=== PATIENT | male | born 1975 | race Caucasian/White ===

== ENCOUNTER 2016-12-13 17:11 | Emergency (ER) | payer MEDICAID ==
[2016-12-13 17:16] VITALS: BP 132/95
[2016-12-13] MEDS ORDERED: Tetracaine 0.5% 2 ML Bottle ONE (17:28)
[2016-12-13] MEDS ORDERED: Tetracaine 0.5% 2 ML Bottle EYERT ONE (17:38)
[2016-12-13] MEDS ORDERED: Balanced Salt Solution Ophth Irrig 30 ML Bottle EYERT ONE (17:43)
[2016-12-13] MEDS ORDERED: Acetaminophen/HYDROcodone 325-7.5 MG Tab PO ONE (17:50)
--- NOTE | 2016-12-13 17:58 | EDM.PDOC ---
ED HPI EYE COMPLAINT - General Chief Complaint: ENT Problem Stated Complaint: right eye pain and FB Time Seen by Provider: 12/13/16 17:30 Source: Reports: Patient History Limitations: Reports: No limitations - History of Present Illness INITIAL COMMENTS - FREE TEXT/NARRATIVE: Was grinding metal yesterday and got a piece of it in the right eye. Now it is red and painful. Symptom Onset Date: 12/12/16 Symptom Onset Time: 17:00 Location: right eye Quality: Reports: Burning Severity: moderate Improves with: Reports: None Worsens with: Reports: None Context: Reports: other (as above) Associated Symptoms (Eye): Reports: pain, burning, FB sensation, sensitivity to light CORE BAKER (EYE): eyewash/irrigation - Related Data Allergies/ADRs: Allergies No Known Allergies Allergy (Verified 12/13/16 17:12) Home Meds: Ambulatory Orders Medication Instructions Recorded Confirmed Hydrocodone/Acetaminophen [Brielle 1 each PO QID PRN #8 tablet 12/13/16 7.5-325 Tablet] Past Medical History Cardiovascular History: Reports: None Respiratory History: Reports: COPD Gastrointestinal History: Reports: GERD Genitourinary History: Reports: Renal calculus Psychiatric History: Reports: None - Infectious Disease History Infectious Disease History: Reports: Chicken pox - Past Surgical History HEENT Surgical History: Reports: Oral surgery Male Surgical History: Reports: Lithotripsy (ESWL), Renal Calculus, Other ( see below) Other Male Surgeries/Procedures: renal stent Social & Family History - Tobacco Use Smoking Status *Q: Current Every Day Smoker Years of Tobacco use: 25 Packs/Tins Daily: 1 Used Tobacco, but Quit: No Second Hand Smoke Exposure: No - Alcohol Use Days Per Week of Alcohol Use: 0 Number of Drinks Per Day: 1 Total Drinks Per Week: 0 - Recreational Drug Use Recreational Drug Use: Yes Drug Use in Last 12 Months: Yes Recreational Drug Type: Reports: Marijuana/Hashish Recreational Drug Use Frequency: Daily Recreational Drug Last Use: marijuana - Living Situation & Occupation Living situation: Reports: (07/06/10-second , one daughter and 3 sons from first marriage), (From his first in 2003 with the patient having custody of the 4 children from this marriage) Occupation: employed ([employer], previously involved in construction, welding, etc. ) ED ROS GENERAL - Review of Systems Review Of Systems: ROS reveals no pertinent complaints other than HPI. ED EXAM GENERAL W FULL EYE - Physical Exam Exam: See Below Exam Limited By: No limitations General Appearance: alert, WD/WN, no apparent distress Eye Exam: right eye: conjunctival injection, foreign body, left eye: normal inspection, bilateral eye: EOMI, PERRL Eyelids: bilateral: normal appearance Conjunctiva & Sclera: right: injected Cornea Exam: right: foreign body Extraocular Movements: bilateral: intact Pupils: normal accommodation Pupillary Size: bilateral: 4 mm Pupillary Reaction: bilateral: brisk Anterior Chamber: bilateral: normal appearance Nose: normal inspection Throat/Mouth: Normal inspection, No airway compromise Head: atraumatic, normocephalic Neck: normal inspection, supple, non-tender, full range of motion Respiratory/Chest: no respiratory distress, lungs clear, no accessory muscle use Cardiovascular: regular rate, rhythm Neurological: alert, oriented, CN II-XII intact, normal cognition, normal gait, no motor/sensory deficits Psychiatric: normal affect, normal mood Skin Exam: Warm, Dry, Intact, Normal color, No rash ED EYE w/ Add Procedure - Eye Procedure Alcaine Drops Administered: Yes Eye FB Removal: other (ophthalmic esther - including rust ring) Eye Irrigated w/ Saline (ccs): 10 Course - Vital Signs Last Recorded V/S: Last Vital Signs Temp 37.2 C 12/13/16 17:12 Pulse 90 12/13/16 17:12 Resp 18 12/13/16 17:12 BP 132/95 H 12/13/16 17:12 Pulse Ox 98 12/13/16 17:12 - Orders/Labs/Meds Meds: Medications Discontinued Medications Generic Name Dose Route Start Last Admin Trade Name Marii PRN Reason Stop Dose Admin Acetaminophen/Hydrocodone Bitart 1 tab 12/13/16 17:50 Brielle 325-7.5 Mg PO 12/13/16 17:51 ONETIME ONE Balanced Salt Solution 30 ml 12/13/16 17:43 12/13/16 17:53 Eye Stream Eye Rinse EYERT 12/13/16 17:44 30 ml ONETIME ONE Administration Tetracaine Confirm 12/13/16 17:28 12/13/16 17:38 Pontocaine 0.5% Ophth Drops Administered 12/13/16 17:29 Not Given Dose 2 ml .ROUTE .STK-MED ONE Tetracaine 1 ml 12/13/16 17:38 12/13/16 17:28 Pontocaine 0.5% Ophth Drops EYERT 12/13/16 17:39 1 ml ASDIRECTED ONE Administration Departure - Departure Time of Disposition: 17:58 Disposition: Home, Self-Care 01 Condition: good Clinical Impression: Corneal foreign body Qualifiers: Encounter type: initial encounter Laterality: right Qualified Code(s): T15.01XA - Foreign body in cornea, right eye, initial encounter Prescriptions: Hydrocodone/Acetaminophen [Brielle 7.5-325 Tablet] 1 each PO QID PRN #8 tablet PRN Reason: Pain Instructions: Eye Foreign Body, [id number] Referrals: Nery Borden NP [Primary Care Provider] - Forms: ED Department Discharge Additional Instructions: You had a small piece of metal in the eye over the cornea. There was a small ring of rust around it. It was all removed with a tiny esther. Use the eye drops four times a day for 5 days until the cornea heals. Use the pain medication as needed for the next couple days. - Problem List Review Problem List Initiated/Reviewed/Updated: No - Assessment/Plan Assessment:: Corneal FB with rust ring - removed with esther Plan: Antibiotic drops bid for 5 days Brielle 7.5 #8 for pain See eye doctor in F/U
== END 2016-12-13 18:10 | disposition home or self-care (01) ==
LOC: LL.ED 17:11
DX: T15.01XA Foreign body in cornea, right eye, initial encounter (principal); X58.XXXA Exposure to other specified factors, initial encounter; F17.200 Nicotine dependence, unspecified, uncomplicated
CPT/HCPCS: 65220; 99282; 99283; A9270

== ENCOUNTER 2019-03-24 09:59 | Emergency (ER) | payer MEDICAID ==
[2019-03-24 10:14] VITALS: BP 127/84
[2019-03-24] MEDS ORDERED: Ketorolac 10 MG Tab PO ONE (10:52)
[2019-03-24] MEDS ORDERED: traMADol 50 MG Tab PO ONE (12:00)
--- NOTE | 2019-03-24 12:07 | EDM.PDOC ---
ED HPI GENERAL MEDICAL PROBLEM - General Chief Complaint: General Stated Complaint: L Knee pain, R wrist pain Time Seen by Provider: 03/24/19 10:27 Source of Information: Reports: Patient History Limitations: Reports: No Limitations - History of Present Illness INITIAL COMMENTS - FREE TEXT/NARRATIVE: Patient comes to ER to have left knee/ankle and right wrist looked at. He was on a ladder yesterday when he fell off and landed on the ground. Was around 5-6 feet up when this happened. No loc. Able to ambulate but more sore today. Can partially bear weight on left knee. Denies other injuries. Has not taken anything for pain. States knee is 10/10 pain and wrist 7/10 Treatments QUANTITATIVE RESEARCHER: Reports: Cold Therapy - Related Data Allergies Allergy/AdvReac Type Severity Reaction Status Date / Time No Known Allergies Allergy Verified 03/24/19 10:06 Home Meds: Home Meds traMADol [Ultram] 50 mg PO Q6H PRN #12 tab 03/24/19 [Rx] Past Medical History Cardiovascular History: Reports: None Respiratory History: Reports: COPD Gastrointestinal History: Reports: GERD Genitourinary History: Reports: Renal Calculus Psychiatric History: Reports: None - Infectious Disease History Infectious Disease History: Reports: Chicken Pox - Past Surgical History HEENT Surgical History: Reports: Oral Surgery Male Surgical History: Reports: Lithotripsy (ESWL), Renal Calculus Social & Family History - Tobacco Use Smoking Status *Q: Current Every Day Smoker Years of Tobacco use: 29 Packs/Tins Daily: 1.5 Smoking Cessation Information Provided To Patient: Patient Refused - Alcohol Use Alcohol Use History: Yes Alcohol Use Frequency: Socially - Recreational Drug Use Recreational Drug Type: Reports: Marijuana/Hashish Recreational Drug Use Frequency: Socially - Living Situation & Occupation Living situation: Reports: , Occupation: Employed ED ROS GENERAL - Review of Systems Review Of Systems: See Below Constitutional: Reports: No Symptoms HEENT: Reports: No Symptoms Respiratory: Reports: No Symptoms. Denies: Pleuritic Chest Pain Cardiovascular: Reports: No Symptoms. Denies: Chest Pain GI/Abdominal: Reports: No Symptoms. Denies: Abdominal Pain : Reports: No Symptoms Musculoskeletal: Reports: Joint Pain (see HPI), Muscle Stiffness. Denies: Neck Pain, Shoulder Pain, Back Pain, Joint Swelling Skin: Reports: Other (abrasion left ankle) Neurological: Reports: No Symptoms Psychiatric: Reports: No Symptoms ED EXAM, GENERAL - Physical Exam Exam: See Below Exam Limited By: No Limitations General Appearance: Alert, WD/WN, No Apparent Distress Eye Exam: Bilateral Eye: EOMI, PERRL Ears: Normal External Exam, Hearing Grossly Normal Nose: No: Nasal Deformity, Nasal Swelling, Nasal Drainage Throat/Mouth: Normal Lips, Normal Voice, No Airway Compromise Head: Atraumatic, Normocephalic Neck: Normal Inspection, Supple, Non-Tender, Full Range of Motion. No: Tender Lateral, Tender Midline Respiratory/Chest: No Respiratory Distress, Lungs Clear, Normal Breath Sounds, No Accessory Muscle Use, Chest Non-Tender Cardiovascular: Regular Rate, Rhythm, No Edema, No Murmur Peripheral Pulses: 2+: Radial (R), Dorsalis Pedis (L) GI/Abdominal: Soft, Non-Tender (Male) Exam: Deferred Rectal (Males) Exam: Deferred Back Exam: No: Muscle Spasm, Paraspinal Tenderness, Vertebral Tenderness Extremities: Normal Capillary Refill, Other (able to move right wrist/elbow/ fingers as well as left knee and ankle, some pain limitation when moving the knee. No obvious deformity/swelling of involved joints. Knee has some tenderness to it inferior to patella medially and laterally, otherwise non- tender. Ankle has mild discomfort difusely with palpation but nothing pinpoint. Rest of left leg non-tender. Mild diffuse tenderness with palpation of right wrist, non-focal. Wiggles fingers easily. Elbow and forearm non-tender. Mild abrasion lateral left ankle, otherwise no bruising noted. Skin otherwise normal color. Other joints non-tender) Neurological: Alert, Oriented, Normal Cognition, No Motor/Sensory Deficits Psychiatric: Normal Affect, Normal Mood Skin Exam: Warm, Dry Course - Vital Signs Last Recorded V/S: Last Vital Signs Temp 36.5 C 03/24/19 10:00 Pulse 62 03/24/19 10:00 Resp 16 03/24/19 10:00 BP 127/84 03/24/19 10:00 Pulse Ox 98 03/24/19 10:00 - Orders/Labs/Meds Orders: Active Orders 24 hr Category Date Time Status Ankle Min 3V Lt [CR] Stat Exams 03/24/19 10:07 Taken Knee 3V Lt [CR] Stat Exams 03/24/19 10:08 Taken Tibia Fibula Lt [CR] Stat Exams 03/24/19 10:08 Taken Wrist Comp Min 3V Rt [CR] Stat Exams 03/24/19 10:07 Taken Meds: Medications Discontinued Medications Generic Name Dose Route Start Last Admin Trade Name Freq PRN Reason Stop Dose Admin Ketorolac Tromethamine 10 mg 03/24/19 10:52 03/24/19 11:08 Toradol PO 03/24/19 10:53 10 mg ONETIME ONE Administration Tramadol HCl 50 mg 03/24/19 12:00 03/24/19 12:10 Ultram PO 03/24/19 12:01 50 mg ONETIME ONE Administration - Radiology Interpretation Free Text/Narrative:: Xray of left knee/lower leg/ankle and right wrist performed. No obvious acute fracture per Radiology. - Re-Assessments/Exams Free Text/Narrative Re-Assessment/Exam: 03/24/19 13:54 No acute fractures identified. Precautions reviewed. To be re-evaluated by primary clinic early next week if no improvement of discomfort is noted over the weekend. Enio wrap applied to knee. Crutches given. Patient felt he could use them despite his sore wrist. Single Toradol and Tramadol given PO here. Small number of Tramadol dispensed for use over the weekend. He is to otherwise use OTC NSAIDS or Tylenol to help with pain. May need to consider new xrays in 7-10 days if pain still suspicious for a fracture, or MRI if need to rule out ligament/other soft tissue damage if pain does not improve much over the next few days. Departure - Departure Time of Disposition: 11:58 Disposition: Home, Self-Care 01 Condition: Good Clinical Impression: Left wrist pain, Right wrist pain Left ankle pain Qualifiers: Chronicity: acute Qualified Code(s): M25.572 - Pain in left ankle and joints of left foot Fall from ladder Qualifiers: Encounter type: initial encounter Qualified Code(s): W11.XXXA - Fall on and from ladder, initial encounter - Discharge Information *PRESCRIPTION DRUG MONITORING PROGRAM REVIEWED*: Not Applicable *COPY OF PRESCRIPTION DRUG MONITORING REPORT IN PATIENT TRU: Not Applicable Prescriptions: traMADol [Ultram] 50 mg PO Q6H PRN #12 tab PRN Reason: Pain Instructions: Crutch Use, Adult, [id number], Contusion, [id number] Referrals: Nery Borden NP [Primary Care Provider] - Forms: ED Department Discharge Additional Instructions: Take Tramadol one tab every 6 hours as needed for pain. OK to take a NSAID, such as ibuprofen or Aleve with the Tramadol. Also OK to take Tylenol with the Tramadol. Topical ice may be helpful for soreness. Avoid weight bearing. Keep knee enio wrapped for compression. If no improvement overall noted by Wednesday, follow up for recheck at your clinic or with walk-in Ortho at either [facility] or [facility]. Xrays can be redone in 7-10 days if there is still concern for occult fracture. MRI can be considered if there is concern for ligament damage/soft tissue damage. - My Orders Last 24 Hours: My Active Orders 03/24/19 10:07 Ankle Min 3V Lt [CR] Stat Wrist Comp Min 3V Rt [CR] Stat 03/24/19 10:08 Knee 3V Lt [CR] Stat Tibia Fibula Lt [CR] Stat - Assessment/Plan Last 24 Hours: My Active Orders 03/24/19 10:07 Ankle Min 3V Lt [CR] Stat Wrist Comp Min 3V Rt [CR] Stat 03/24/19 10:08 Knee 3V Lt [CR] Stat Tibia Fibula Lt [CR] Stat
== END 2019-03-24 12:20 | disposition home or self-care (01) ==
LOC: LL.ED 09:59
DX: S90.512A Abrasion, left ankle, initial encounter (principal); M25.531 Pain in right wrist; M25.532 Pain in left wrist; W11.XXXA Fall on and from ladder, initial encounter
CPT/HCPCS: 73110; 73562; 73590; 73610; 99283; A9270

== ENCOUNTER 2020-03-30 18:34 | Emergency (ER) | payer MEDICAID, BC ==
[2020-03-30] MEDS ORDERED: Bacitracin/Neomycin/Polymyxin B Oint 0.9 GM U/D Packet TOP ONE (18:41)
[2020-03-30 18:46] VITALS: BP 148/95; PULSE 86
--- NOTE | 2020-03-30 21:04 | EDM.PDOC ---
ED HPI GENERAL MEDICAL PROBLEM - General Chief Complaint: Laceration Stated Complaint: laceration Time Seen by Provider: 03/30/20 18:39 Source of Information: Reports: Patient History Limitations: Reports: No Limitations - History of Present Illness INITIAL COMMENTS - FREE TEXT/NARRATIVE: Right cheek laceration. Hit by metal bar while working on project. No LOC. NO vision change. Able to open and close jaw without issue/teeth meet correctly. Pain around laceration site. Denies other facial pain/no other new pain complaints. Tetanus recently updated. Right Face/Facial Pain Score (Numeric/FACES): 3 - Related Data Allergies Allergy/AdvReac Type Severity Reaction Status Date / Time No Known Allergies Allergy Verified 03/24/19 10:06 Past Medical History Cardiovascular History: Reports: None Respiratory History: Reports: COPD Gastrointestinal History: Reports: GERD Genitourinary History: Reports: Renal Calculus Psychiatric History: Reports: None - Infectious Disease History Infectious Disease History: Reports: Chicken Pox - Past Surgical History HEENT Surgical History: Reports: Oral Surgery Male Surgical History: Reports: Lithotripsy (ESWL), Renal Calculus Social & Family History - Tobacco Use Smoking Status *Q: Current Every Day Smoker Years of Tobacco use: 30 Packs/Tins Daily: 1 - Caffeine Use Caffeine Use: Reports: Soda - Recreational Drug Use Recreational Drug Use: Yes Recreational Drug Type: Reports: Marijuana/Hashish Recreational Drug Use Frequency: Daily - Living Situation & Occupation Living situation: Reports: , Occupation: Employed ED ROS GENERAL - Review of Systems Review Of Systems: Comprehensive ROS is negative, except as noted in HPI. ED EXAM, SKIN/RASH Exam: See Below Exam Limited By: No Limitations General Appearance: Alert, WD/WN, No Apparent Distress Eye Exam: Bilateral Eye: EOMI, PERRL Ears: Normal External Exam, Normal Canal, Hearing Grossly Normal Nose: Normal Inspection Throat/Mouth: Normal Inspection, Normal Lips, Normal Voice, No Airway Compromise Head: Facial Swelling (right cheek/laceration right cheek) Neck: Normal Inspection, Supple, Non-Tender, Full Range of Motion Respiratory/Chest: No Respiratory Distress, Lungs Clear, Normal Breath Sounds Cardiovascular: Regular Rate, Rhythm Extremities: Normal Range of Motion, Normal Capillary Refill Neurological: Alert, Oriented, Normal Cognition, Normal Gait, No Motor/Sensory Deficits Psychiatric: Normal Affect, Normal Mood Skin: Warm, Dry, Other (laceration right cheek/moderate swelling in immediate area) Location, Skin: Head ED SKIN PROCEDURES - Laceration/Wound Repair Right Cheek Appearance: Subcutaneous, Irregular, Clean Anesthetic Type: Local Local Anesthesia - Lidocaine (Xylocaine): 1% Plain Local Anesthetic Volume: 3cc Skin Prep: Chlorhexidine (Hibiciens) Exploration/Debridement/Repair: Wound Explored, In a Bloodless Field, Explored to Base, No Foreign Material Found Closed with: Sutures Lac/Wound length In cm: 2 Suture Size: 4-0 # of Sutures: 5 Suture Type: Nylon, Interrupted Drain Placement: No Sterile Dressing Applied: Nurse Tetanus Status Addressed: Yes Complications: No Course - Vital Signs Last Recorded V/S: Last Vital Signs Temp 37.1 C 03/30/20 18:45 Pulse 86 03/30/20 18:45 Resp 16 03/30/20 18:45 BP 148/95 H 03/30/20 18:45 Pulse Ox 98 03/30/20 18:45 - Orders/Labs/Meds Orders: Active Orders 24 hr Category Date Time Status Max Facial Sinus wo Cont [CT] Stat Exams 03/30/20 18:43 Ordered Meds: Medications Discontinued Medications Generic Name Dose Route Start Last Admin Trade Name Freq PRN Reason Stop Dose Admin Lidocaine HCl 5 ml 03/30/20 18:40 03/30/20 18:55 Xylocaine-Mpf 1% INJECT 03/30/20 18:41 Not Given ONETIME ONE Neomycin/Polymyxin/Bacitracin 1 each 03/30/20 18:41 03/30/20 18:55 Triple Antibiotic Oint TOP 03/30/20 18:42 1 each ONETIME ONE Administration - Re-Assessments/Exams Free Text/Narrative Re-Assessment/Exam: 03/30/20 21:03 CT of face performed but as of yet no official results obtained. No obvious fracture noted on initial review. Laceration repaired. Wound care reviewed. Precautions reviewed. Sutures out next Wednesday. Departure - Departure Time of Disposition: 19:30 Disposition: Home, Self-Care 01 Condition: Good Clinical Impression: Laceration of right cheek Qualifiers: Encounter type: initial encounter Qualified Code(s): S01.411A - Laceration without foreign body of right cheek and temporomandibular area, initial encounter Facial contusion Qualifiers: Encounter type: initial encounter Qualified Code(s): S00.83XA - Contusion of other part of head, initial encounter - Discharge Information *PRESCRIPTION DRUG MONITORING PROGRAM REVIEWED*: Not Applicable *COPY OF PRESCRIPTION DRUG MONITORING REPORT IN PATIENT TRU: Not Applicable Referrals: PCP,None [Ordering Only Provider] - Forms: ED Department Discharge Additional Instructions: Sutures out next Wednesday. Follow up as needed if there are any problems such as signs of infection. We will call you if there are concerns of fracture per Radiology review. Sepsis Event Note (ED) - Evaluation Sepsis Screening Result: No Definite Risk - Focused Exam Vital Signs: Vital Signs Temp Pulse Resp BP Pulse Ox 03/30/20 18:45 37.1 C 86 16 148/95 H 98 - My Orders Last 24 Hours: My Active Orders 03/30/20 18:43 Max Facial Sinus wo Cont [CT] Stat - Assessment/Plan Last 24 Hours: My Active Orders 03/30/20 18:43 Max Facial Sinus wo Cont [CT] Stat
== END 2020-03-30 19:45 | disposition home or self-care (01) ==
LOC: LL.ED 18:34
DX: S01.411A Laceration without foreign body of right cheek and temporomandibular area, initial encounter (principal); J44.9 Chronic obstructive pulmonary disease, unspecified; F17.210 Nicotine dependence, cigarettes, uncomplicated; W22.8XXA Striking against or struck by other objects, initial encounter
CPT/HCPCS: 12011; 70486; 99283; 99283-25; J2001